=== PATIENT | female | born 1995 | race Caucasian/White ===

== ENCOUNTER 2018-05-06 16:06 | Emergency (ER) | payer OTHER ==
[2018-05-06 16:07] VITALS: BMI 20.1
[2018-05-06] MEDS ORDERED: TDAP Vaccine 0.5 mL Syr IM ONE (17:01)
[2018-05-06] MEDS ORDERED: Amoxicillin-Clav 875-125 mg Tab PO STA (17:01)
[2018-05-06] MEDS ORDERED: Rabies Immune Globulin 150 INTLU/ML VIAL IM ONE (17:02)
--- NOTE | 2018-05-06 17:34 | ED PDOC ---
Arrival/HPI - General Chief Complaint: Bite Time Seen by Provider: 05/06/18 16:31 Historian: Patient - History of Present Illness Narrative History of Present Illness (Text): 05/06/18 17:32 22yr old female presents today with a bite to the right thumb from a mouse. pt states she was trying to prevent the mouse from going into the water and when she captured the mouse, it bit her thumb. pt is c/o minimal pain to the thumb. denies fever/chills. incident occurred prior to arrival. no numbness, weakness or tingling in the extremity. no other complaints. unsure of last tetanus shot. Past Medical History - Provider Review Nursing Documentation Reviewed: Yes - Travel History Have you recently traveled outside [place] w/in the past 3 mons?: No - Infectious Disease Hx of Infectious Diseases: None - Tetanus Immunization Tetanus Immunization: Unknown - Cardiac Hx Cardiac Disorders: No - Pulmonary Hx Asthma: Yes - Neurological Hx Neurological Disorder: No - HEENT Hx HEENT Disorder: No - Renal Hx Renal Disorder: No - Endocrine/Metabolic Hx Endocrine Disorders: No - Hematological/Oncological Hx Blood Disorders: No - Integumentary Hx Dermatological Disorder: No - Musculoskeletal/Rheumatological Hx Musculoskeletal Disorders: No - Gastrointestinal Hx Gastrointestinal Disorders: No - Genitourinary/Gynecological Hx Genitourinary Disorders: No Other/Comment: ovarian cyst - Psychiatric Hx Psychophysiologic Disorder: No Hx Depression: Yes Hx Emotional Abuse: No Hx Physical Abuse: No Hx Substance Use: No Other/Comment: sees therapist - Surgical History Hx Tonsillectomy: Yes - Anesthesia Hx Anesthesia: No Hx Anesthesia Reactions: No Hx Malignant Hyperthermia: No - Suicidal Assessment Feels Threatened In Home Enviroment: No Family/Social History - Physician Review Nursing Documentation Reviewed: Yes Family/Social History: Unknown Family HX Smoking Status: Light Smoker < 10 Cigarettes Daily Hx Alcohol Use: Yes Frequency of alcohol use: Socially Hx Substance Use: No Hx Substance Use Treatment: No Allergies/Home Meds Allergies/Adverse Reactions: Allergies oral contraceptives Allergy (Uncoded 05/06/18 16:28) NAUSEA Home Medications: Home Meds Medication Instructions Recorded Confirmed Albuterol Sulfate [Proventil Hfa] 2 puff NEB Q6 PRN 05/06/18 05/06/18 Review of Systems - Review of Systems Constitutional: absent: Fatigue, Fevers Respiratory: absent: SOB, Cough Cardiovascular: absent: Chest Pain, Palpitations Gastrointestinal: absent: Abdominal Pain, Nausea, Vomiting Musculoskeletal: Arthralgias Skin: Laceration (bite by mouse to right thumb) Psychiatric: absent: Anxiety, Depression Physical Exam Vital Signs Reviewed: Yes Vital Signs Temp Pulse Resp BP Pulse Ox 05/06/18 18:07 98.2 F 85 19 118/71 99 05/06/18 16:25 98.2 F 78 18 114/72 99 Temperature: Afebrile Blood Pressure: Normal Pulse: Regular Respiratory Rate: Normal Appearance: Positive for: Well-Appearing, Non-Toxic, Comfortable Pain Distress: None Mental Status: Positive for: Alert and Oriented X 3 - Systems Exam Head: Present: Atraumatic Respiratory/Chest: Present: Clear to Auscultation Cardiovascular: Present: Regular Rate and Rhythm Upper Extremity: Present: Normal ROM, NORMAL PULSES, Tenderness, Neurovascularly Intact, Capillary Refill < 2s, Other (right thumb; there is a 1cm superficial laceration along volar aspect of distal tip of thumb. no surrounding erythema. ). No: Swelling, Erythema, Deformity Neurological: Present: GCS=15 Skin: Present: Warm, Dry, Normal Color Psychiatric: Present: Alert, Oriented x 3 Medical Decision Making ED Course and Treatment: 05/06/18 19:20 Patient is nontoxic well-appearing in no distress. Vital signs are stable. Tetanus updated Wound irrigated well with copious amounts of high-pressure irrigation using normal saline Augmentin 875 mg p.o. rabies immunoglobulin and rabies vaccine given. 0.4cc of rabies immunoglobulin injected locally around thumb laceration. Patient was advised to keep the wound clean and dry, apply bacitracin twice daily, take antibiotics as prescribed and return immediately if symptoms worsen persist or if new symptoms develop. pt was advised to return on 3 days, 7days and 14 days for continuation of rabies vaccine. Impression: animal bite, laceration Motrin one tablet every 6 hours as needed for pain Augmentin: Twice daily x10 days Keep the wound clean and dry, apply bacitracin twice daily Return on May 09, May 13 and May 20 for the remainder of the rabies vaccine series Return immediately if symptoms worsen persist or if new symptoms develop: High fevers, increasing pain, increasing redness, swelling or if any other concerning symptoms develop. - Medication Orders Current Medication Orders: Discontinued Medications Amoxicillin/Clavulanate Potassium (Augmentin 875 Mg-125 Mg Tab) 1 tab PO STAT STA PRN Reason: Protocol Stop: 05/06/18 17:02 Last Admin: 05/06/18 17:35 Dose: 1 tab Rabies Immune Globulin (Imogam) 1,120 intlu IM .ONCE ONE Stop: 05/06/18 17:03 Last Admin: 05/06/18 18:09 Dose: 1,120 intlu IM Administration Charges Document 05/06/18 18:09 GMI (Rec: 05/06/18 18:10 [facility] [id number] Injection Site MAR Injection Site Right Vastus Lateralis Charges for Administration # of IM Administrations 5 MAR Immunization Data Document 05/06/18 18:09 GMI (Rec: 05/06/18 18:10 I [facility] [place] [facility] [id number] Immunization Data Vaccine Information Sheet Given Yes Immunization Registry Document 05/06/18 18:09 GMI (Rec: 05/06/18 18:10 [facility] [id number] Immunization Registry Consent Date 05/06/18 Rabies Vaccine Human Diploid Cell (Rabavert Vaccine Inj) 2.5 units IM .ONCE ONE Stop: 05/06/18 17:02 Last Admin: 05/06/18 18:01 Dose: 2.5 units Immunization Registry Document 05/06/18 18:01 GMI (Rec: 05/06/18 18:01 [facility] [id number] Immunization Registry Consent Date 05/06/18 Tetanus/Reduced Diphtheria/Acell Pertussis (Boostrix Vaccine Inj) 0.5 ml IM .ONCE ONE Stop: 05/06/18 17:02 Last Admin: 05/06/18 17:36 Dose: 0.5 ml MAR Immunization Data Document 05/06/18 17:36 GMI (Rec: 05/06/18 17:36 [place] [email or web address] Immunization Data Vaccine Information Sheet Given Yes Vaccine Information Sheet Given Date 05/06/18 Immunization Registry Document 05/06/18 17:36 GMI (Rec: 05/06/18 17:36 [email or web address] Immunization Registry Consent Date 05/06/18 Disposition/Present on Arrival - Present on Arrival Any Indicators Present on Arrival: No History of DVT/PE: No History of Uncontrolled Diabetes: No Urinary Catheter: No History of Decub. Ulcer: No History Surgical Site Infection Following: None - Disposition Have Diagnosis and Disposition been Completed?: Yes Diagnosis: Bite by animal Disposition: HOME/ ROUTINE Disposition Time: 18:34 Patient Plan: Discharge Patient Problems: Current Active Problems Problem Status Onset Bite by animal Acute Condition: GOOD Discharge Instructions (ExitCare): Animal Bites (DC) Additional Instructions: Motrin one tablet every 6 hours as needed for pain Augmentin: Twice daily x10 days Keep the wound clean and dry, apply bacitracin twice daily Return on May 09, May 13 and May 20 for the remainder of the rabies vaccine series Return immediately if symptoms worsen persist or if new symptoms develop: High fevers, increasing pain, increasing redness, swelling or if any other concerning symptoms develop. Prescriptions: Amoxicillin/Clavulanate [Augmentin 875 MG-125 MG] 1 tab PO BID #20 tab Bacitracin OINT 1 applic TP BID #1 tube Ibuprofen [Motrin] 600 mg PO Q6H PRN #20 tab PRN Reason: pain/fever reduction Referrals: Sean Dallas MD [Staff Provider] - Follow up with primary Matt Singer MD [Staff Provider] - Follow up with primary Forms: [employer] (Welsh), WORK NOTE
[2018-05-06 18:53] VITALS: PULSE 85
[2018-05-06 19:35] VITALS: BP 115/42; RESP 20; TEMP 98; O2SAT 100
== END 2018-05-06 19:33 | disposition home or self-care (01) ==
LOC: ED 16:06
DX: S61.051A Open bite of right thumb without damage to nail, initial encounter (principal); W53.01XA Bitten by mouse, initial encounter; F17.210 Nicotine dependence, cigarettes, uncomplicated

== ENCOUNTER 2018-05-09 14:16 | Emergency (ER) | payer OTHER ==
[2018-05-09 14:30] VITALS: BMI 22.1
[2018-05-09 14:32] VITALS: BP 115/80; TEMP 98.9; O2SAT 99
--- NOTE | 2018-05-09 15:16 | ED PDOC ---
Arrival/HPI - General Chief Complaint: Rabies Vaccine Series Time Seen by Provider: 05/09/18 15:08 Historian: Patient - History of Present Illness Narrative History of Present Illness (Text): 05/09/18 15:13 22 y/o female, here for the rabies vaccination as possible exposure to the rabies which she was given immunoglobulin and today is the day 3 for the rabies vaccine. pt. has no numbness or tingling, no fever or chills, no headache or night sweat, no other medical or psychological complaints. Past Medical History - Provider Review Nursing Documentation Reviewed: Yes - Infectious Disease Hx of Infectious Diseases: None - Tetanus Immunization Tetanus Immunization: Unknown - Cardiac Hx Cardiac Disorders: No - Pulmonary Hx Asthma: Yes - Neurological Hx Neurological Disorder: No - HEENT Hx HEENT Disorder: No - Renal Hx Renal Disorder: No - Endocrine/Metabolic Hx Endocrine Disorders: No - Hematological/Oncological Hx Blood Disorders: No - Integumentary Hx Dermatological Disorder: No - Musculoskeletal/Rheumatological Hx Musculoskeletal Disorders: No - Gastrointestinal Hx Gastrointestinal Disorders: No - Genitourinary/Gynecological Hx Genitourinary Disorders: No Other/Comment: ovarian cyst - Psychiatric Hx Psychophysiologic Disorder: No Hx Depression: Yes Hx Emotional Abuse: No Hx Physical Abuse: No Hx Substance Use: No Other/Comment: sees therapist - Surgical History Hx Tonsillectomy: Yes - Anesthesia Hx Anesthesia: No Hx Anesthesia Reactions: No Hx Malignant Hyperthermia: No - Suicidal Assessment Feels Threatened In Home Enviroment: No Family/Social History - Physician Review Nursing Documentation Reviewed: Yes Family/Social History: Unknown Family HX Smoking Status: Light Smoker < 10 Cigarettes Daily Hx Alcohol Use: Yes Hx Substance Use: No Hx Substance Use Treatment: No Allergies/Home Meds Allergies/Adverse Reactions: Allergies oral contraceptives Allergy (Uncoded 05/06/18 16:28) NAUSEA Home Medications: Home Meds Medication Instructions Recorded Confirmed Albuterol Sulfate [Proventil Hfa] 2 puff NEB Q6 PRN 05/06/18 05/09/18 Review of Systems - Review of Systems Constitutional: absent: Fatigue, Fevers Eyes: absent: Vision Changes Respiratory: absent: SOB, Cough Cardiovascular: absent: Chest Pain Gastrointestinal: absent: Abdominal Pain, Nausea, Vomiting Musculoskeletal: absent: Arthralgias, Back Pain Skin: absent: Rash, Pruritis, Skin Lesions Neurological: absent: Headache, Dizziness Psychiatric: absent: Anxiety, Depression Physical Exam Vital Signs Reviewed: Yes Vital Signs Temp Pulse Resp BP Pulse Ox 05/09/18 14:31 98.9 F 93 H 18 115/80 99 Temperature: Afebrile Blood Pressure: Normal Pulse: Regular Respiratory Rate: Normal Appearance: Positive for: Well-Appearing, Non-Toxic, Comfortable Pain Distress: None Mental Status: Positive for: Alert and Oriented X 3 - Systems Exam Head: Present: Atraumatic, Normocephalic Pupils: Present: PERRL Extroacular Muscles: Present: EOMI Conjunctiva: Present: Normal Mouth: Present: Moist Mucous Membranes Neck: Present: Normal Range of Motion Respiratory/Chest: Present: Clear to Auscultation, Good Air Exchange. No: Respiratory Distress, Accessory Muscle Use Cardiovascular: Present: Regular Rate and Rhythm, Normal S1, S2. No: Murmurs Abdomen: No: Tenderness, Distention, Peritoneal Signs Back: Present: Normal Inspection Upper Extremity: Present: Normal Inspection, Normal ROM, NORMAL PULSES, Neurovascularly Intact, Capillary Refill < 2s. No: Cyanosis, Edema, Deformity Lower Extremity: Present: Normal Inspection, Normal ROM, Neurovascularly Intact , Capillary Refill < 2 s. No: Edema, Tenderness, Swelling, Deformity Neurological: Present: GCS=15, CN II-XII Intact, Speech Normal, Motor Func Grossly Intact, Gait Normal, Memory Normal Skin: Present: Warm, Dry, Normal Color. No: Rashes Psychiatric: Present: Alert, Oriented x 3, Normal Insight, Normal Concentration Medical Decision Making ED Course and Treatment: 05/09/18 15:14 - ordered and it is negative -Rabies vaccine ordered -Discharge home with education on follow up with your own pmd within 2 days, continue your rabies vaccine scheduled as you been told initially, return to the ER for any new or worsening signs or symptoms. - Medication Orders Current Medication Orders: Discontinued Medications Rabies Vaccine Human Diploid Cell (Imovax Rabies) 2.5 units IM .ONCE ONE Stop: 05/09/18 15:13 - PA / UI LEAD DEVELOPER / Resident Statement /DO has reviewed & agrees with the documentation as recorded. Disposition/Present on Arrival - Present on Arrival Any Indicators Present on Arrival: No History of DVT/PE: No History of Uncontrolled Diabetes: No Urinary Catheter: No History of Decub. Ulcer: No History Surgical Site Infection Following: None - Disposition Have Diagnosis and Disposition been Completed?: Yes Diagnosis: Need for rabies vaccination Disposition: HOME/ ROUTINE Disposition Time: 15:15 Patient Plan: Discharge Patient Problems: Current Active Problems Problem Status Onset Need for rabies vaccination Acute Condition: GOOD Additional Instructions: -Discharge home with education on follow up with your own pmd within 2 days, continue your rabies vaccine scheduled as you been told initially, return to the ER for any new or worsening signs or symptoms. Referrals: [facility] [place] [Outside] - Follow up with primary Forms: WORK NOTE
[2018-05-09 15:52] VITALS: PULSE 88; RESP 16
== END 2018-05-09 15:49 | disposition home or self-care (01) ==
LOC: ED 14:16
DX: Z23 Encounter for immunization (principal)

== ENCOUNTER 2018-05-13 09:23 | Emergency (ER) | payer OTHER ==
[2018-05-13 09:23] VITALS: BMI 22.1
[2018-05-13 09:52] VITALS: RESP 18; TEMP 98.5; O2SAT 100
--- NOTE | 2018-05-13 10:01 | ED PDOC ---
Arrival/HPI <Johana Horton - Last Filed: 05/13/18 10:26> - General Historian: Patient - History of Present Illness Time/Duration: 1 week Symptom Onset: Sudden, Other Symptom Course: Unchanged, Improving, Resolved Quality: Aching, Other (throbbing when bite occured- resovled) <Anibal Alba - Last Filed: 05/13/18 10:33> - General Chief Complaint: Rabies Vaccine Series - History of Present Illness Narrative History of Present Illness (Text): Patient is a 22 year old female who presents to the Emergency department for her day 7 rabies vaccination. Patient was given immunoglobulin 7 days ago and recieved 1st rabies vaccination on day 3. Denies headache, numbness/tingling, night sweats, fever, chills, chest pain, shortness of breath, abdominal pain, nausea, vomiting, diarrhea, constipation, and urinary symptoms. 05/13/18 09:57 05/13/18 10:32 (Anibal Alba) Past Medical History - Provider Review Nursing Documentation Reviewed: Yes - Travel History Have you recently traveled outside [place] w/in the past 3 mons?: No - Infectious Disease Hx of Infectious Diseases: None - Tetanus Immunization Tetanus Immunization: Unknown - Cardiac Hx Cardiac Disorders: No - Pulmonary Hx Asthma: Yes - Neurological Hx Neurological Disorder: No - HEENT Hx HEENT Disorder: No - Renal Hx Renal Disorder: No - Endocrine/Metabolic Hx Endocrine Disorders: No - Hematological/Oncological Hx Blood Disorders: No - Integumentary Hx Dermatological Disorder: No - Musculoskeletal/Rheumatological Hx Musculoskeletal Disorders: No - Gastrointestinal Hx Gastrointestinal Disorders: No - Genitourinary/Gynecological Hx Genitourinary Disorders: No Other/Comment: ovarian cyst - Psychiatric Hx Psychophysiologic Disorder: No Hx Depression: Yes Hx Emotional Abuse: No Hx Physical Abuse: No Hx Substance Use: No Other/Comment: sees therapist - Surgical History Hx Tonsillectomy: Yes - Anesthesia Hx Anesthesia: No Hx Anesthesia Reactions: No Hx Malignant Hyperthermia: No - Suicidal Assessment Feels Threatened In Home Enviroment: No <Anibal Alba - Last Filed: 05/13/18 10:33> Family/Social History - Physician Review Nursing Documentation Reviewed: Yes Family/Social History: Unknown Family HX Smoking Status: Light Smoker < 10 Cigarettes Daily Hx Alcohol Use: Yes Hx Substance Use: No Hx Substance Use Treatment: No <Anibal Alba - Last Filed: 05/13/18 10:33> Allergies/Home Meds <Johana Horton - Last Filed: 05/13/18 10:26> <Anibal Alba - Last Filed: 05/13/18 10:33> Allergies/Adverse Reactions: Allergies oral contraceptives Allergy (Uncoded 05/06/18 16:28) NAUSEA Home Medications: Home Meds Medication Instructions Recorded Confirmed Albuterol Sulfate [Proventil Hfa] 2 puff NEB Q6 PRN 05/06/18 05/13/18 Review of Systems - Review of Systems Constitutional: Normal Eyes: Normal ENT: Normal Respiratory: Normal Cardiovascular: Normal Gastrointestinal: Normal Genitourinary Female: Normal Musculoskeletal: Normal Skin: Normal Neurological: Normal Endocrine: Normal Hemo/Lymphatic: Normal Psychiatric: Normal <Anibal Alba - Last Filed: 05/13/18 10:33> Physical Exam Temperature: Afebrile Blood Pressure: Normal Pulse: Regular Respiratory Rate: Normal Appearance: Positive for: Well-Appearing, Non-Toxic, Comfortable Pain Distress: None Mental Status: Positive for: Alert and Oriented X 3 - Systems Exam Head: Present: Atraumatic, Normocephalic Pupils: Present: PERRL Extroacular Muscles: Present: EOMI Conjunctiva: Present: Normal Mouth: Present: Moist Mucous Membranes Neck: Present: Normal Range of Motion Respiratory/Chest: Present: Clear to Auscultation, Good Air Exchange. No: Respiratory Distress, Accessory Muscle Use Cardiovascular: Present: Regular Rate and Rhythm, Normal S1, S2. No: Murmurs Abdomen: No: Tenderness, Distention, Peritoneal Signs Back: Present: Normal Inspection Upper Extremity: Present: Normal Inspection. No: Cyanosis, Edema Lower Extremity: Present: Normal Inspection. No: Edema Neurological: Present: GCS=15, CN II-XII Intact, Speech Normal Skin: Present: Warm, Dry, Normal Color. No: Rashes Psychiatric: Present: Alert, Oriented x 3, Normal Insight, Normal Concentration <Anibal Alba - Last Filed: 05/13/18 10:33> Vital Signs Temp Pulse Resp BP Pulse Ox 05/13/18 09:23 98.5 F 73 18 111/74 100 Medical Decision Making <ShevavesJohana lakhani - Last Filed: 05/13/18 10:26> <Anibal Alba - Last Filed: 05/13/18 10:33> ED Course and Treatment: 05/13/18 10:25 22 year old female presents to the Emergency department for rabies vaccination. In agreement with resident note, which includes further HPI details. Patient was seen and evaluated with resident, came up with plan and treatment together. (Johana Horton) Assessment and Plan: Patient is a 22 year old female who presents to the Emergency department for her day 7 rabies vaccination. 05/13/18 10:02 - rabies vaccination provided (Anibal Alba) - Medication Orders Current Medication Orders: Discontinued Medications Rabies Vaccine Human Diploid Cell (Imovax Rabies) 2.5 units IM .ONCE ONE Stop: 05/13/18 09:57 Last Admin: 05/13/18 10:13 Dose: 2.5 units MAR Immunization Data Document 05/13/18 10:13 [place] (Rec: 05/13/18 10:14 [place] [id number]) Immunization Data Vaccine Information Sheet Given Yes Immunization Registry Document 05/13/18 10:13 [place] (Rec: 05/13/18 10:14 [place] [id number]) Immunization Registry Consent Date 05/13/18 - PA / WAX POT TENDER / Resident Statement MD/ has reviewed & agrees with the documentation as recorded. MD/ has examined the patient and agrees with the treatment plan. - Scribe Statement The provider has reviewed the documentation as recorded by the Scribe <Johana Horton - Last Filed: 05/13/18 10:26> <Anibal Alba - Last Filed: 05/13/18 10:33> - Scribe Statement Carol Ann Salguero. All medical record entries made by the Scribe were at my direction and personally dictated by me. I have reviewed the chart and agree that the record accurately reflects my personal performance of the history, physical exam, medical decision making, and the department course for this patient. I have also personally directed, reviewed, and agree with the discharge instructions and disposition. (Johana Horton) Disposition/Present on Arrival <Johana Horton - Last Filed: 05/13/18 10:26> - Present on Arrival Any Indicators Present on Arrival: No History of DVT/PE: No History of Uncontrolled Diabetes: No Urinary Catheter: No History of Decub. Ulcer: No History Surgical Site Infection Following: None - Disposition Have Diagnosis and Disposition been Completed?: Yes Disposition Time: 10:32 <Anibal Alba - Last Filed: 05/13/18 10:33> - Disposition Diagnosis: Need for rabies vaccination Disposition: HOME/ ROUTINE Patient Problems: Current Active Problems Problem Status Onset Need for rabies vaccination Acute Condition: GOOD Additional Instructions: SAMSON PAYAN, thank you for letting us take care of you today. Your provider was Johana Horton MD and you were treated for RABIES VACCINE. The emergency medical care you received today was directed at your acute symptoms. If you were prescribed any medication, please fill it and take as directed. It may take several days for your symptoms to resolve. Return to the Emergency Department if your symptoms worsen, do not improve, or if you have any other problems. Please contact your doctor or call one of the physicians/clinics you have been referred to that are listed on the Patient Visit Information form that is included in your discharge packet. Bring any paperwork you were given at discharge with you along with any medications you are taking to your follow up visit. Our treatment cannot replace ongoing medical care by a primary care provider outside of the emergency department. Thank you for allowing the [facility] team to be part of your care today. If you had an X-Ray or CT scan: A Radiologist will review the ED reading if any change in treatment is needed we will contact you. If you had a blood, urine, or wound culture: It will take several days for the results, if any change in treatment is needed we will contact you. If you had an STI test: It will take 48 hours for the results. Please call after 1 week if you have not heard back. Continue your rabies vaccine scheduled as you been told initially, return to the ER for any new or worsening signs or symptoms. Forms: [employer] (Turkmen)
[2018-05-13 10:39] VITALS: BP 115/70; PULSE 70
== END 2018-05-13 10:37 | disposition home or self-care (01) ==
LOC: ED 09:23
DX: Z23 Encounter for immunization (principal)

== ENCOUNTER 2018-05-20 09:31 | Emergency (ER) | payer OTHER ==
[2018-05-20 09:31] VITALS: BMI 22.1
[2018-05-20 09:43] VITALS: RESP 18; O2SAT 99
--- NOTE | 2018-05-20 10:59 | ED PDOC ---
Arrival/HPI - General Chief Complaint: Rabies Vaccine Series Time Seen by Provider: 05/20/18 10:31 Historian: Patient - History of Present Illness Narrative History of Present Illness (Text): 05/20/18 10:56 Pt is a 22 year old female who presents to the Emergency department for her last rabies vaccination. Patient was given immunoglobulin 7 days ago and received 1st rabies vaccination on day 3 after mouse bite. Denies headache, numbness/tingling, night sweats, fever, chills, chest pain, shortness of breath , abdominal pain, nausea, vomiting, diarrhea, constipation, and urinary symptoms. Time/Duration: < month Symptom Onset: Sudden Symptom Course: Resolved Quality: Unable to Describe Severity Level: 1 Context: Work Past Medical History - Provider Review Nursing Documentation Reviewed: Yes - Travel History Have you recently traveled outside [place] w/in the past 3 mons?: No - Infectious Disease Hx of Infectious Diseases: None - Tetanus Immunization Tetanus Immunization: Unknown - Cardiac Hx Cardiac Disorders: No - Pulmonary Hx Asthma: Yes - Neurological Hx Neurological Disorder: No - HEENT Hx HEENT Disorder: No - Renal Hx Renal Disorder: No - Endocrine/Metabolic Hx Endocrine Disorders: No - Hematological/Oncological Hx Blood Disorders: No - Integumentary Hx Dermatological Disorder: No - Musculoskeletal/Rheumatological Hx Musculoskeletal Disorders: No - Gastrointestinal Hx Gastrointestinal Disorders: No - Genitourinary/Gynecological Hx Genitourinary Disorders: No Other/Comment: ovarian cyst - Psychiatric Hx Psychophysiologic Disorder: No Hx Depression: Yes Hx Emotional Abuse: No Hx Physical Abuse: No Hx Substance Use: No Other/Comment: sees therapist - Surgical History Hx Tonsillectomy: Yes - Anesthesia Hx Anesthesia: No Hx Anesthesia Reactions: No Hx Malignant Hyperthermia: No - Suicidal Assessment Feels Threatened In Home Enviroment: No Family/Social History - Physician Review Nursing Documentation Reviewed: Yes Family/Social History: Unknown Family HX Smoking Status: Light Smoker < 10 Cigarettes Daily Hx Alcohol Use: Yes Frequency of alcohol use: Socially Hx Substance Use: No Hx Substance Use Treatment: No Allergies/Home Meds Allergies/Adverse Reactions: Allergies oral contraceptives Allergy (Uncoded 05/20/18 09:43) NAUSEA Home Medications: Home Meds Medication Instructions Recorded Confirmed Albuterol Sulfate [Proventil Hfa] 2 puff NEB Q6 PRN 05/06/18 05/20/18 Review of Systems - Review of Systems Constitutional: Normal Eyes: Normal ENT: Normal Respiratory: Normal Cardiovascular: Normal Gastrointestinal: Normal Genitourinary Female: Normal Musculoskeletal: Normal Skin: Normal Neurological: Normal Endocrine: Normal Hemo/Lymphatic: Normal Psychiatric: Normal Physical Exam Vital Signs Reviewed: Yes Vital Signs Temp Pulse Resp BP Pulse Ox 05/20/18 11:12 97.8 F 78 18 127/70 99 05/20/18 09:41 99 F 89 18 102/76 99 Temperature: Afebrile Blood Pressure: Normal Pulse: Regular Respiratory Rate: Normal Appearance: Positive for: Well-Appearing, Non-Toxic, Comfortable Pain Distress: None Mental Status: Positive for: Alert and Oriented X 3 - Systems Exam Head: Present: Atraumatic, Normocephalic Respiratory/Chest: Present: Clear to Auscultation, Good Air Exchange. No: Respiratory Distress, Accessory Muscle Use Cardiovascular: Present: Regular Rate and Rhythm, Normal S1, S2. No: Murmurs Abdomen: No: Tenderness, Distention, Peritoneal Signs Back: Present: Normal Inspection Upper Extremity: Present: Normal Inspection. No: Cyanosis, Edema Lower Extremity: Present: Normal Inspection. No: Edema Neurological: Present: GCS=15, CN II-XII Intact, Speech Normal Skin: Present: Warm, Dry, Normal Color. No: Rashes, Erythematous, Laceration, Abscess Psychiatric: Present: Alert, Oriented x 3, Normal Insight, Normal Concentration , Normal Affect, Normal Mood Medical Decision Making ED Course and Treatment: 05/20/18 10:57 Impression Pt is a 22 year old female who presents to the Emergency department for her last rabies vaccination. Plan Imovax 2.5 units IM assess and dispo home No further action required 05/21/18 10:52 - Medication Orders Current Medication Orders: Discontinued Medications Rabies Vaccine Human Diploid Cell (Imovax Rabies) 2.5 units IM .ONCE ONE Stop: 05/20/18 10:33 Last Admin: 05/20/18 11:23 Dose: 2.5 units Immunization Registry Document 05/20/18 11:23 EQ (Rec: 05/20/18 11:23 EQ [id number]) Immunization Registry Consent Date 05/13/18 Disposition/Present on Arrival - Present on Arrival Any Indicators Present on Arrival: Yes History of DVT/PE: No History of Uncontrolled Diabetes: No Urinary Catheter: No History of Decub. Ulcer: No History Surgical Site Infection Following: None - Disposition Have Diagnosis and Disposition been Completed?: Yes Diagnosis: Rabies, need for prophylactic vaccination against Disposition: HOME/ ROUTINE Disposition Time: 11:20 Patient Plan: Discharge Condition: GOOD Additional Instructions: SAMSON PAYAN, thank you for letting us take care of you today. Your provider was Sharlene Mason MD and OTIS Smith and you were treated for LAST RABIES VACCINE. The emergency medical care you received today was directed at your acute symptoms. If you were prescribed any medication, please fill it and take as directed. It may take several days for your symptoms to resolve. Return to the Emergency Department if your symptoms worsen, do not improve, or if you have any other problems. Please contact your doctor or call one of the physicians/clinics you have been referred to that are listed on the Patient Visit Information form that is included in your discharge packet. Bring any paperwork you were given at discharge with you along with any medications you are taking to your follow up visit. Our treatment cannot replace ongoing medical care by a primary care provider outside of the emergency department. Thank you for allowing the [facility] team to be part of your care today. Forms: [email or web address] ([place])
[2018-05-20 11:13] VITALS: BP 127/70; PULSE 78; TEMP 97.8
== END 2018-05-20 11:35 | disposition home or self-care (01) ==
LOC: ED 09:31
DX: Z23 Encounter for immunization (principal); F17.210 Nicotine dependence, cigarettes, uncomplicated

== ENCOUNTER 2019-03-17 20:37 | Emergency (ER) | payer OTHER ==
[2019-03-17 20:38] VITALS: BMI 22.1
--- NOTE | 2019-03-17 21:15 | ED PDOC ---
Arrival/HPI - General Historian: Patient Past Medical History - Infectious Disease Hx of Infectious Diseases: None - Tetanus Immunization Tetanus Immunization: Unknown - Cardiac Hx Cardiac Disorders: No - Pulmonary Hx Asthma: Yes - Neurological Hx Neurological Disorder: No - HEENT Hx HEENT Disorder: No - Renal Hx Renal Disorder: No - Endocrine/Metabolic Hx Endocrine Disorders: No - Hematological/Oncological Hx Blood Disorders: No - Integumentary Hx Dermatological Disorder: No - Musculoskeletal/Rheumatological Hx Musculoskeletal Disorders: No - Gastrointestinal Hx Gastrointestinal Disorders: No - Genitourinary/Gynecological Hx Genitourinary Disorders: No Other/Comment: ovarian cyst - Psychiatric Hx Psychophysiologic Disorder: No Hx Depression: Yes Hx Emotional Abuse: No Hx Physical Abuse: No Hx Substance Use: No Other/Comment: sees therapist - Surgical History Hx Tonsillectomy: Yes - Anesthesia Hx Anesthesia: No Hx Anesthesia Reactions: No Hx Malignant Hyperthermia: No - Suicidal Assessment Feels Threatened In Home Enviroment: No Family/Social History Smoking Status: Light Smoker < 10 Cigarettes Daily Hx Alcohol Use: Yes Hx Substance Use: No Hx Substance Use Treatment: No Allergies/Home Meds Allergies/Adverse Reactions: Allergies oral contraceptives Allergy (Uncoded 05/20/18 09:43) NAUSEA Home Medications: Home Meds Medication Instructions Recorded Confirmed Albuterol Sulfate [Proventil Hfa] 2 puff NEB Q6 PRN 05/06/18 05/20/18 Disposition/Present on Arrival - Present on Arrival History of DVT/PE: No History of Uncontrolled Diabetes: No Urinary Catheter: No History Surgical Site Infection Following: None - Disposition
--- NOTE | 2019-03-17 21:16 | ED PDOC ---
Arrival/HPI - General Historian: Patient - History of Present Illness Narrative History of Present Illness (Text): 03/17/19 21:15 23 year old female, no significant pmh, allergic to oral contraceptive, who presents to the ED complaining of sore throat, fever, and cough for the past 2 days. Patient reports max temperature at home was 102F and notes she took Tylenol 1 hour prior to arrival. Patient denies any chest pain, shortness of breath, nausea, vomiting, diarrhea, abdominal pain, headache, dizziness, or any other complaints. Time/Duration: < week (2 days) Symptom Onset: Gradual Symptom Course: Unchanged Activities at Onset: Light Context: Home Past Medical History - Provider Review Nursing Documentation Reviewed: Yes - Infectious Disease Hx of Infectious Diseases: None - Tetanus Immunization Tetanus Immunization: Unknown - Cardiac Hx Cardiac Disorders: No - Pulmonary Hx Asthma: Yes - Neurological Hx Neurological Disorder: No - HEENT Hx HEENT Disorder: No - Renal Hx Renal Disorder: No - Endocrine/Metabolic Hx Endocrine Disorders: No - Hematological/Oncological Hx Blood Disorders: No - Integumentary Hx Dermatological Disorder: No - Musculoskeletal/Rheumatological Hx Musculoskeletal Disorders: No - Gastrointestinal Hx Gastrointestinal Disorders: No - Genitourinary/Gynecological Hx Genitourinary Disorders: No Other/Comment: ovarian cyst - Psychiatric Hx Psychophysiologic Disorder: No Hx Depression: Yes Hx Emotional Abuse: No Hx Physical Abuse: No Hx Substance Use: No Other/Comment: sees therapist - Surgical History Hx Tonsillectomy: Yes - Anesthesia Hx Anesthesia: No Hx Anesthesia Reactions: No Hx Malignant Hyperthermia: No - Suicidal Assessment Feels Threatened In Home Enviroment: No Family/Social History - Physician Review Nursing Documentation Reviewed: Yes Family/Social History: Unknown Family HX Smoking Status: Light Smoker < 10 Cigarettes Daily Hx Alcohol Use: Yes Hx Substance Use: No Hx Substance Use Treatment: No Allergies/Home Meds Allergies/Adverse Reactions: Allergies oral contraceptives Allergy (Uncoded 05/20/18 09:43) NAUSEA Home Medications: Home Meds Medication Instructions Recorded Confirmed Albuterol Sulfate [Proventil Hfa] 2 puff NEB Q6 PRN 05/06/18 05/20/18 Review of Systems - Physician Review All systems were reviewed & negative as marked: Yes - Review of Systems Constitutional: Fatigue, Fevers Eyes: absent: Vision Changes ENT: Sore Throat. absent: Hearing Changes, Rhinorrhea Respiratory: Cough Cardiovascular: absent: Chest Pain Gastrointestinal: absent: Abdominal Pain, Diarrhea, Nausea, Vomiting Musculoskeletal: Myalgias. absent: Arthralgias, Back Pain, Joint Swelling Skin: absent: Rash, Pruritis Neurological: absent: Headache, Dizziness Endocrine: absent: Diaphoresis Psychiatric: absent: Anxiety, Depression, Suicidal Ideation Physical Exam Vital Signs Reviewed: Yes Temperature: Afebrile Blood Pressure: Normal Pulse: Regular Respiratory Rate: Normal Appearance: Positive for: Well-Appearing, Non-Toxic, Comfortable Pain Distress: None Mental Status: Positive for: Alert and Oriented X 3 - Systems Exam Head: Present: Atraumatic, Normocephalic Pupils: Present: PERRL Extroacular Muscles: Present: EOMI Conjunctiva: Present: Normal Ears: Present: Normal, NORMAL TM, Normal Canal. No: Erythema, TM Bulging, Fluid, TM Perf Mouth: Present: Moist Mucous Membranes Pharnyx: Present: Normal. No: ERYTHEMA, EXUDATE, TONSILS ENLARGED, Peritonsilar Swelling, Uvular Deviation, Muffled/Hoarse Voice, Strider, Soft Palate/Uvular Edema Nose (External): Present: Atraumatic. No: Abrasion, Contusion, Laceration, Lesions Nose (Internal): Present: Normal Inspection, No Active Bleeding. No: Rhinorrhea, Septal Deviation, Septal Hematoma, Epistaxis Neck: Present: Normal Range of Motion, Trachea Midline. No: Meningeal Signs, MIDLINE TENDERNESS, Paraspinal Tenderness, Lymphadenopathy Respiratory/Chest: Present: Clear to Auscultation, Good Air Exchange. No: Respiratory Distress, Accessory Muscle Use, Wheezes, Decreased Breath Sounds, Rales, Retracting, Rhonchi, Tachypneic, Tender to Palpation, Other Cardiovascular: Present: Regular Rate and Rhythm, Normal S1, S2. No: Murmurs Abdomen: No: Tenderness, Distention, Peritoneal Signs Back: Present: Normal Inspection. No: CVA Tenderness, Midline Tenderness, Paraspinal Tenderness Upper Extremity: Present: Normal Inspection. No: Cyanosis, Edema Lower Extremity: Present: Normal Inspection. No: Edema Neurological: Present: GCS=15, CN II-XII Intact, Speech Normal Skin: Present: Warm, Dry, Normal Color. No: Rashes Psychiatric: Present: Alert, Oriented x 3, Normal Insight, Normal Concentration Medical Decision Making ED Course and Treatment: 03/17/19 21:15 -Urine hcg -Rapid flu -Observe and reassess 03/17/19 22:23 -Urine hcg is negative -Rapid flu is negative, clinical suspicious is moderate to high, tamiflu and zithromax ordered. -Pt. has no chest pain or shortness of breath, no pleuritic pain. -PERC criteria is negative -Pt. request to be discharged home, advised to return to the ER if there is no improvement in 48 hours further evaluation -Discharge home with zithromax, tamiflu, bromfed dm, motrin, stay hydrated, follow up with your own pmd within 2 days return to the ER for any new or worsening signs or symptoms. - PA / SOCIAL SERVICE WORKER / Resident Statement MD/DO has reviewed & agrees with the documentation as recorded. - Scribe Statement The provider has reviewed the documentation as recorded by the Chelle Carpio Provider Scribe Attestation: All medical record entries made by the Luisibgeno were at my direction and personally dictated by me. I have reviewed the chart and agree that the record accurately reflects my personal performance of the history, physical exam, medical decision making, and the department course for this patient. I have also personally directed, reviewed, and agree with the discharge instructions and disposition. Disposition/Present on Arrival - Present on Arrival Any Indicators Present on Arrival: No History of DVT/PE: No History of Uncontrolled Diabetes: No Urinary Catheter: No History of Decub. Ulcer: No History Surgical Site Infection Following: None - Disposition Have Diagnosis and Disposition been Completed?: Yes Diagnosis: Flu-like symptoms, URI (upper respiratory infection) Disposition: HOME/ ROUTINE Disposition Time: 22:25 Patient Plan: Discharge Condition: GOOD Additional Instructions: -Discharge home with zithromax, tamiflu, bromfed dm, motrin, stay hydrated, follow up with your own pmd within 2 days return to the ER for any new or worsening signs or symptoms. Prescriptions: Azithromycin [Zithromax] 250 mg PO DAILY #4 tab Brompheniramine/Pseudoephed/Dm [Bromfed Dm Cough 118 ml] 10 ml PO QID PRN #300 ml PRN Reason: Other Ibuprofen [Motrin] 600 mg PO QID PRN #30 tab PRN Reason: Other Oseltamivir Cap [Tamiflu] 75 mg PO BID #10 cap Referrals: PCP,NO [Primary Care Provider] - Follow up with primary [facility] [Outside] - Follow up with primary Forms: WORK NOTE
[2019-03-17 22:42] VITALS: BP 113/72; PULSE 96; RESP 18; TEMP 98.6; O2SAT 98
== END 2019-03-17 22:51 | disposition home or self-care (01) ==
LOC: ED 20:37
DX: J06.9 Acute upper respiratory infection, unspecified (principal); J11.1 Influenza due to unidentified influenza virus with other respiratory manifestations; F17.210 Nicotine dependence, cigarettes, uncomplicated